=== PATIENT | male | born 1940 | race Caucasian/White ===

== ENCOUNTER 2017-06-09 14:34 | Emergency (ER) | payer BC ==
[2017-06-09] MEDS ORDERED: ACYCLOVIR 200 MG CAPSULE PO ONE (14:53)
[2017-06-09] MEDS ORDERED: HYDROCODONE/APAP 5/325MG TABLET PO ONE (14:53)
--- NOTE | 2017-06-09 15:02 | Emergency Department Record ---
History of Present Illness - General Chief complaint: Rash Stated complaint: RT SIDE BACK/ABOMINAL PAIN X5 DAYS Source: Patient, Family Mode of Arrival: Ambulatory Limitations: No limitations - History of Present Illness Initial comments: 76 yo male presents with a progressive rash over the last several days. It started on the right side and wrapped around to the front. No fevers. The rash is painful and has blisters. He has had shingles in the past. NO other cough, shortness of breath, nausea, vomiting or diarrhea. He was diagnosed with scabies early but the rash has changed. MD complaint: Rash -: Days(s) Location: Chest Severity: Moderate Quality: Aching Consistency: Constant Improves with: None Worsens with: None Context: None Associated symptoms: Denies other symptoms Treatments Prior to Arrival: Other (scabies treatment) - Related Data Home Medications Medication Instructions Recorded Confirmed Last Taken Ivermectin 3 mg PO ASDIR 06/09/17 06/09/17 06/09/17 Permethrin [Elimite] 60 gm TP ASDIR 06/09/17 06/09/17 06/09/17 Previous Rx's Medication Instructions Recorded Acyclovir 800 mg PO Q6H #20 tablet 06/09/17 Hydrocodone/Acetaminophen [Rowe 1 each PO Q6H PRN #20 tablet 06/09/17 5-325 Tablet] Allergies Allergy/AdvReac Type Severity Reaction Status Date / Time Penicillins Allergy HIVES Verified 06/09/17 14:46 simvastatin [From Zocor] Allergy ABDOMINAL Verified 06/09/17 14:46 PAIN Sulfa (Sulfonamide Allergy HIVES Verified 06/09/17 14:46 Antibiotics) atorvastatin calcium AdvReac ABDOMINAL Verified 06/09/17 14:46 [From Lipitor] PAIN azathioprine [From Imuran] AdvReac ABDOMINAL Verified 06/09/17 14:46 CRAMPS azathioprine sodium AdvReac ABDOMINAL Verified 06/09/17 14:46 [From Imuran] CRAMPS fenofibrate nanocrystallized AdvReac ABDOMINAL Verified 06/09/17 14:46 [From Tricor] PAIN fenofibrate,micronized AdvReac ABDOMINAL Verified 06/09/17 14:46 [From Tricor] PAIN Review of Systems Constitutional: Denies: Chills, Fever, Malaise, Weakness Eyes: Denies: Eye discharge ENT: Denies: Congestion, Throat pain Respiratory: Denies: Cough Cardiovascular: Reports: As per HPI, Chest pain. Denies: Palpitations, Syncope Endocrine: Denies: Fatigue Gastrointestinal: Denies: Abdominal pain, Diarrhea, Nausea, Vomiting Genitourinary: Denies: Dysuria, Frequency, Hematuria Musculoskeletal: Denies: Arthralgia, Back pain, Joint swelling, Myalgia Skin: Reports: As per HPI, Change in color, Rash Neurological: Denies: Confusion, Headache Psychiatric: Denies: Anxiety Hematological/Lymphatic: Denies: Blood Clots, Easy bleeding, Easy bruising, Swollen glands Past Medical History - SOCIAL HISTORY Smoking Status: Former smoker Drug Use: None - RESPIRATORY Hx Respiratory Disorders: Yes Hx Asthma: Yes - CARDIOVASCULAR Hx Cardio Disorders: Yes Hx Abnormal EKG: Yes Hx Cardiac Cath: Yes (1987, 1988) Comment:: angina/hypercholesteremia - NEURO Hx Neuro Disorders: Yes Comment:: myasthenia gravis - GI Hx GI Disorders: Yes Hx Diverticulitis: Yes Hx Obstructive Bowel: Yes - Hx Genitourinary Disorders: No - ENDOCRINE Hx Endocrine Disorders: Yes Hx Diabetes: Yes (niddm) Hx Thyroid Disease: No - MUSCULOSKELETAL Hx Musculoskeletal Disorders: Yes Hx Arthritis: Yes - PSYCH Hx Psych Problems: No - HEMATOLOGY/ONCOLOGY Hx Hematology/Oncology Disorders: No Family Medical History Hx Diabetes: Mother Hx Heart Disease: Father, Mother Hx HTN: Mother Hx Stroke: Mother Physical Exam - General General Appearance: Alert, Oriented x3, Cooperative, No acute distress Limitations: No limitations - Head Head exam: Normal inspection - Eye Eye exam: Normal appearance, PERRL. negative: Conjunctival injection, Scleral icterus - ENT ENT exam: Normal exam, Mucous membranes moist Ear exam: Normal external inspection Nasal Exam: Normal inspection Mouth exam: Normal external inspection Teeth exam: Normal inspection Throat exam: Normal inspection - Neck Neck exam: Normal inspection, Full ROM. negative: Tenderness - Respiratory Respiratory exam: Normal lung sounds bilaterally, Chest wall tenderness (tender over the blistered rash). negative: Respiratory distress - Cardiovascular Cardiovascular Exam: Regular rate, Normal rhythm, Normal heart sounds - GI/Abdominal GI/Abdominal exam: Soft. negative: Tenderness - Rectal Rectal exam: Deferred - exam: Deferred - Extremities Extremities exam: Normal inspection - Back Back exam: Reports: Normal inspection, Full ROM. Denies: Muscle spasm, Rash noted, Tenderness - Neurological Neurological exam: Alert, Normal gait, Oriented X3, Reflexes normal - Psychiatric Psychiatric exam: Normal affect, Normal mood - Skin Skin exam: Rash Distribution of rash: Chest, Other (band like pattern around the chest from the back just passing midline) Description of rash: Blisters, Macular, Papular, Tenderness Course - Reevaluation(s) Reevaluation #1: Rash is consistent with shingles Well appearing. No other current symptoms 06/09/17 14:57 06/09/17 15:02 Vitals reviewed No acute changes DC with Rx for Acyclovir and Rowe He was instructed no driving while on Rowe Disposition Disposition: Discharge Clinical Impression: Shingles Qualifiers: Herpes zoster complications: without complications Qualified Code(s): B02.9 - Zoster without complications Disposition: Home, Self-Care Condition: (1) Good Instructions: Shingles (ED) Additional Instructions: Call your doctor for follow up this week to recheck your rash and pain control Be seen immediately if fever, cough, vomiting, short of breath Prescriptions: Acyclovir 800 mg PO Q6H #20 tablet Hydrocodone/Acetaminophen [Rowe 5-325 Tablet] 1 each PO Q6H PRN #20 tablet PRN Reason: Pain - General Forms: Patient Portal Access Time of Disposition: 14:58 Quality - Quality Measures Quality Measures: N/A - Blood Pressure Screening Does Patient Have Any of the Following: Active Dx of HTN Blood Pressure Classification: Hypertensive Reading Systolic Measurement: 144 Diastolic Measurement: 106 Screening for High Blood Pressure: Patient Exclusion, Hx of HTN [[id number]]
== END 2017-06-09 15:09 | disposition home or self-care (01) ==
LOC: ER 14:34
DX: B02.9 Zoster without complications (principal); E11.9 Type 2 diabetes mellitus without complications; I10 Essential (primary) hypertension; Z87.891 Personal history of nicotine dependence
CPT/HCPCS: 99282